=== PATIENT | female | born 1980 | race African-American/Black ===

== ENCOUNTER 2025-10-06 11:57 | Emergency (ER) | payer OTHER ==
[~2025-10-06] VITALS: Ht 157.5 cm; Wt 74.8 kg
[2025-10-06 12:13] VITALS: BP 120/72; TEMP 98
[2025-10-06 12:40] VITALS: O2SAT 99
== END 2025-10-06 12:40 | disposition home or self-care (01) ==
LOC: ER 12:20
DX: K46.9 Unspecified abdominal hernia without obstruction or gangrene (principal); Z90.49 Acquired absence of other specified parts of digestive tract